=== PATIENT | male | born 1985 | race Two or more races ===

== ENCOUNTER 2019-08-16 23:32 | Emergency (ER) | payer SELFPAY ==
[~2019-08-16] VITALS: Ht 177.8 cm; Wt 113.1 kg
[2019-08-17 00:23] VITALS: BP 125/67
--- NOTE | 2019-08-17 00:29 | PHYS DOC ---
Past Medical History Past Medical History: Hypertension Past Surgical History: No Surgical History Alcohol Use: Rarely Drug Use: None Adult General Chief Complaint Chief Complaint: ANXIETY/PANIC ATTACK HPI HPI 34-year-old male presents to emergency Department complaints of palpitations, shortness of breath. Patient has a history of panic attack. Patient states he was driving on the road felt pounding in his chest as well as shortness of breath. This was approximately 30 minutes ago. Nothing makes his symptoms worse, nothing makes his symptoms better. Patient has a family history of diabetes, hypertension. Review of Systems Review of Systems Constitutional: Denies fever or chills [] Respiratory: Denies cough or shortness of breath [] Cardiovascular: No additional information not addressed in HPI [] GI: Denies abdominal pain, nausea, vomiting, bloody stools or diarrhea [] Musculoskeletal: Denies back pain or joint pain [] Neurologic: Denies headache, focal weakness or sensory changes [] All other systems were reviewed and found to be within normal limits, except as documented in this note. Allergies Allergies Allergies Coded Allergies Type Severity Reaction Last Updated Verified No Known Drug Allergies 08/17/19 No Physical Exam Physical Exam Constitutional: Well developed, well nourished, no acute distress, non-toxic appearance. [] HENT: Normocephalic, atraumatic, bilateral external ears normal, oropharynx moist, no oral exudates, nose normal. [] Eyes: PERRLA, EOMI, conjunctiva normal, no discharge. [] Cardiovascular:Heart rate regular rhythm, no murmur [] Lungs & Thorax: Bilateral breath sounds clear to auscultation [] Abdomen: Bowel sounds normal, soft, no tenderness, no masses, no pulsatile masses. [] Skin: Warm, dry, no erythema, no rash. [] Extremities: No tenderness, no edema. [] Neurologic: Alert and oriented X 3, no focal deficits noted. [] Psychologic: Affect normal, judgement normal, mood normal. [] Current Patient Data Vital Signs Vital Signs Date Time Temp Pulse Resp B/P (MAP) Pulse Ox O2 Delivery O2 Flow Rate FiO2 08/17/19 00:23 98.5 67 16 125/67 (86) 97 Room Air 98.5 Lab Values Laboratory Tests Test 08/17/19 00:40 White Blood Count 10.0 x10^3/uL (4.0-11.0) Red Blood Count 5.02 x10^6/uL (4.30-5.70) Hemoglobin 14.4 g/dL (13.0-17.5) Hematocrit 43.5 % (39.0-53.0) Mean Corpuscular Volume 87 fL (79-100) Mean Corpuscular Hemoglobin 29 pg (25-35) Mean Corpuscular Hemoglobin Concent 33 g/dL (31-37) Red Cell Distribution Width 13.4 % (11.5-14.5) Platelet Count 259 x10^3/uL (140-400) Neutrophils (%) (Auto) 49 % (31-73) Lymphocytes (%) (Auto) 40 % (24-48) Monocytes (%) (Auto) 10 % (0-9) H Eosinophils (%) (Auto) 1 % (0-3) Basophils (%) (Auto) 0 % (0-3) Neutrophils # (Auto) 4.9 x10^3/uL (1.8-7.7) Lymphocytes # (Auto) 4.0 x10^3/uL (1.0-4.8) Monocytes # (Auto) 1.0 x10^3/uL (0.0-1.1) Eosinophils # (Auto) 0.1 x10^3/uL (0.0-0.7) Basophils # (Auto) 0.0 x10^3/uL (0.0-0.2) Sodium Level 142 mmol/L (136-145) Potassium Level 4.0 mmol/L (3.5-5.1) Chloride Level 104 mmol/L (98-107) Carbon Dioxide Level 29 mmol/L (21-32) Anion Gap 9 (6-14) Blood Urea Nitrogen 11 mg/dL (8-26) Creatinine 0.9 mg/dL (0.7-1.3) Estimated GFR (Cockcroft-Gault) 97.2 BUN/Creatinine Ratio 12 (6-20) Glucose Level 100 mg/dL (70-99) H Calcium Level 9.0 mg/dL (8.5-10.1) Total Bilirubin 0.1 mg/dL (0.2-1.0) L Aspartate Amino Transferase (AST) 16 U/L (15-37) Alanine Aminotransferase (ALT) 15 U/L (16-63) L Alkaline Phosphatase 124 U/L (46-116) H Troponin I Quantitative < 0.017 ng/mL (0.000-0.055) Total Protein 7.5 g/dL (6.4-8.2) Albumin 3.7 g/dL (3.4-5.0) Albumin/Globulin Ratio 1.0 (1.0-1.7) Laboratory Tests 08/17/19 00:40 Laboratory Tests 08/17/19 00:40 EKG EKG EKG reviewed, normal sinus rhythm no evidence of acute ST elevation appreciated. Heart rate 64, normal axis. Troponin vision time 00 44[] Radiology/Procedures Radiology/Procedures [] Course & Med Decision Making Course & Med Decision Making Pertinent Labs and Imaging studies reviewed. (See chart for details) []34-year-old male presents to emergency Department complaints of palpitations, shortness of breath. Patient has a history of panic attack. Patient states he was driving on the road felt pounding in his chest as well as shortness of breath. This was approximately 30 minutes ago. Nothing makes his symptoms worse, nothing makes his symptoms better. Patient has a family history of diabetes, hypertension. Labs and EKG reviewed No acute process Likely palpitations with associated anxiety - discussed use of atenolol for palpitations Cardiac enzymes negative for acute process Dragon Disclaimer Dragon Disclaimer This electronic medical record was generated, in whole or in part, using a voice recognition dictation system. Departure Departure Impression: Primary Impression: Anxiety Additional Impression: Racing heart beat Disposition: HOME, SELF-CARE Condition: STABLE Referrals: NO PCP (PCP) Patient Instructions: Anxiety and Panic Attacks, [id number], Palpitations, [id number] Additional Instructions: Recommend follow up with PCP 3 - 5 days Return to the ER with worsening symptoms, intractable pain, fever, altered mental status Tylenol/Motrin as needed for pain Take new medications as prescribed Scripts Atenolol (ATENOLOL) 25 Mg Tablet 0.5 TAB PO DAILY, #30 TAB 5 Refills Prov: PARTHA BAILEY MD 08/17/19 Problem Qualifiers PARTHA BAILEY MD Aug 17, 2019 00:29
--- NOTE | 2019-08-17 00:43 | EKG ---
[facility] [address] [place] [address] Test Date: 2019-08-17 Test Time: 00:30:08 Pat Name: REENA BROWN Department: Room: Gender: M Lineman Apprentice: : 1985 Requested By: PARTHA BAILEY Order Number: [id number] Reading MD: Measurements Intervals [place] Rate: 64 P: 52 AL: 192 QRS: 86 QRSD: 90 T: 65 QT: 358 QTc: 369 Interpretive Statements SINUS RHYTHM QRS(T) CONTOUR ABNORMALITY CONSIDER ANTEROLATERAL MYOCARDIAL DAMAGE POSSIBLY ABNORMAL ECG RI6.01 No previous ECG available for comparison
[2019-08-17 00:52] LABS: BASO % 0 % (0-3); EOS # 0.1 x10^3/uL (0.0-0.7); EOS % 1 % (0-3); HEMATOCRIT 43.5 % (39.0-53.0); HEMOGLOBIN 14.4 g/dL (13.0-17.5); LYMPH % 40 % (24-48); MEAN CORPUSCULAR HEMOGLOBIN 29 pg (25-35); MEAN CORPUSCULAR HGB CONC 33 g/dL (31-37); MEAN CORPUSCULAR VOLUME 87 fL (79-100); MONO % 10 % (0-9); NEUT # 4.9 x10^3/uL (1.8-7.7); NEUT % 49 % (31-73); PLATELET COUNT 259 x10^3/uL (140-400); RED BLOOD COUNT 5.02 x10^6/uL (4.30-5.70); RED CELL DISTRIBUTION WIDTH 13.4 % (11.5-14.5)
[2019-08-17 01:00] LABS: CREATININE 0.9 mg/dL (0.7-1.3); GFR 97.2
[2019-08-17 01:06] LABS: ALBUMIN 3.7 g/dL (3.4-5.0); TOTAL BILIRUBIN 0.1 mg/dL (0.2-1.0); TOTAL PROTEIN 7.5 g/dL (6.4-8.2)
[2019-08-17] MEDS ORDERED: ATEN25TA PO (01:21)
== END 2019-08-17 01:40 | disposition home or self-care (01) ==
LOC: ER 23:32
DX: F41.9 Anxiety disorder, unspecified (principal); R00.0 Tachycardia, unspecified; R00.2 Palpitations; R06.02 Shortness of breath; I10 Essential (primary) hypertension
CPT/HCPCS: 36415; 80053; 84484; 85025; 93005; 99285

== ENCOUNTER 2020-04-04 14:55 | Emergency (ER) | payer SELFPAY ==
[~2020-04-04] VITALS: Ht 172.7 cm; Wt 116.0 kg
[~2020-04-04 14:55] MED LIST: ATEN25TA PO
[2020-04-04 15:19] LABS: BASO # 0.1 x10^3/uL (0.0-0.2); BASO % 1 % (0-3); EOS # 0.1 x10^3/uL (0.0-0.7); EOS % 1 % (0-3); HEMATOCRIT 43.4 % (39.0-53.0); HEMOGLOBIN 14.4 g/dL (13.0-17.5); LYMPH # 2.8 x10^3/uL (1.0-4.8); LYMPH % 36 % (24-48); MEAN CORPUSCULAR HEMOGLOBIN 29 pg (25-35); MEAN CORPUSCULAR HGB CONC 33 g/dL (31-37); MEAN CORPUSCULAR VOLUME 86 fL (79-100); MONO # 0.8 x10^3/uL (0.0-1.1); MONO % 10 % (0-9); NEUT # 4.2 x10^3/uL (1.8-7.7); NEUT % 53 % (31-73); PLATELET COUNT 276 x10^3/uL (140-400); RED BLOOD COUNT 5.05 x10^6/uL (4.30-5.70); RED CELL DISTRIBUTION WIDTH 13.4 % (11.5-14.5); WHITE BLOOD COUNT 7.9 x10^3/uL (4.0-11.0)
--- NOTE | 2020-04-04 15:30 | PHYS DOC ---
Past Medical History Past Medical History: Hypertension Past Surgical History: No Surgical History Smoking Status: Never Smoker Alcohol Use: Occasionally Drug Use: None General Adult EDM: Chief Complaint: HYPERTENSION HPI: HPI: Patient is a 35 year old male who presents with patient states that last year he was in the hospital because he started having dizziness, headache, numbness and tingling in his hands and feet and some sternal chest pain and was given atenolol and told that he has high blood pressure. He states that he has not been taking the atenolol and just takes it every now and then when he feels bad. He states today he began feeling very bad and was dizzy and having mid chest sternal pain. Patient states since he was feeling that way he took his atenolol 25 mg and now he feels much better. Upon arrival his vital signs are within normal limits. Patient currently states he has no symptoms and they have all resolved. Review of Systems: Review of Systems: Cardiovascular: chest pain or denies edema. [] Neurologic: Dizziness, headache, denies focal weakness. + sensory changes. [] Heart Score: HEART Score for Chest Pain: HEART Score for Chest Pain Response (Comments) Value History Slighlty/Non-Suspicious 0 ECG Normal 0 Age < 45 0 Risk Factors 1 or 2 Risk Factors 1 Troponin < Normal Limit 0 Total 1 Risk Factors: Risk Factors: DM, Current or recent (<one month) smoker, HTN, HLP, family history of CAD, obesity. Risk Scores: Score 0 - 3: 2.5% MACE over next 6 weeks - Discharge Home Score 4 - 6: 20.3% MACE over next 6 weeks - Admit for Clinical Observation Score 7 - 10: 72.7% MACE over next 6 weeks - Early Invasive Strategies Allergies: Allergies: Allergies Coded Allergies Type Severity Reaction Last Updated Verified No Known Drug Allergies 08/17/19 No Physical Exam: PE: Constitutional: Well developed, well nourished, no acute distress, non-toxic appearance. [] HENT: Normocephalic, atraumatic, bilateral external ears normal, oropharynx moist, no oral exudates, nose normal. [] Eyes: PERRLA, EOMI, conjunctiva normal, no discharge. [] Neck: Normal range of motion, no tenderness, supple, no stridor. [] Cardiovascular:Heart rate regular rhythm, no murmur [] Lungs & Thorax: Bilateral breath sounds clear to auscultation [] Abdomen: Bowel sounds normal, soft, no tenderness, no masses, no pulsatile mass es. [] Skin: Warm, dry, no erythema, no rash. [] Back: No tenderness, no CVA tenderness. [] Extremities: No tenderness, no cyanosis, no clubbing, ROM intact, no edema. [] Neurologic: Alert and oriented X 3, normal motor function, normal sensory function, no focal deficits noted. [] Psychologic: Affect normal, judgement normal, mood normal. Normal physical exam [] Current Patient Data: Labs: Laboratory Tests Test 04/04/20 15:10 White Blood Count 7.9 x10^3/uL (4.0-11.0) Red Blood Count 5.05 x10^6/uL (4.30-5.70) Hemoglobin 14.4 g/dL (13.0-17.5) Hematocrit 43.4 % (39.0-53.0) Mean Corpuscular Volume 86 fL (79-100) Mean Corpuscular Hemoglobin 29 pg (25-35) Mean Corpuscular Hemoglobin Concent 33 g/dL (31-37) Red Cell Distribution Width 13.4 % (11.5-14.5) Platelet Count 276 x10^3/uL (140-400) Neutrophils (%) (Auto) 53 % (31-73) Lymphocytes (%) (Auto) 36 % (24-48) Monocytes (%) (Auto) 10 % (0-9) H Eosinophils (%) (Auto) 1 % (0-3) Basophils (%) (Auto) 1 % (0-3) Neutrophils # (Auto) 4.2 x10^3/uL (1.8-7.7) Lymphocytes # (Auto) 2.8 x10^3/uL (1.0-4.8) Monocytes # (Auto) 0.8 x10^3/uL (0.0-1.1) Eosinophils # (Auto) 0.1 x10^3/uL (0.0-0.7) Basophils # (Auto) 0.1 x10^3/uL (0.0-0.2) Laboratory Tests 04/04/20 15:10 EKG: EK and read by Dr. Polanco is normal sinus rhythm. [] Radiology/Procedures: Radiology/Procedures: [] Impression: [facility] [id number] [place] [address] IMAGING REPORT Signed PATIENT: DANDY BROWN: [id number] : 1985 LOCATION: ER AGE: 35 SEX: M EXAM STATUS: PRE ER ORD. PHYSICIAN: PERTA LEWIS APRN REASON: hypertension PROCEDURE: PORTABLE CHEST 1V EXAM: PORTABLE CHEST 1V 04/04/2020 3:05 PM CLINICAL INDICATION:Hypertension COMPARISON:None TECHNIQUE:AP upright view of the chest FINDINGS:The heart and mediastinum are normal. Lungs are well-expanded and clear. No pleural effusion or pneumothorax. No pulmonary edema. No acute osseous abnormality. IMPRESSION:Normal chest radiograph. Electronically signed by: Laurie Mcqueen MD (04/04/2020 3:55 PM) [id number] DICTATED and SIGNED BY: LAURIE MCQUEEN MD DATE: 04/04/20 15[facility] [address] [place] [address] IMAGING REPORT Signed PATIENT: DANDY BROWN: [id number] : 1985 LOCATION: ER AGE: 35 SEX: M EXAM STATUS: PRE ER ORD. PHYSICIAN: PETRA LEWIS APRN REASON: DIZZINESS, NUMBNESS AND TINGLING PROCEDURE: CT HEAD WO CONTRAST PQRS Compliance Statement: One or more of the following individualized dose reduction techniques were utilized for this examination: 1. Automated exposure control 2. Adjustment of the mA and/or kV according to patient size 3. Use of iterative reconstruction technique CT head without contrast 04/04/2020 3:44 PM INDICATION: Dizziness, numbness and tingling COMPARISON: None available TECHNIQUE: Multiple axial CT images of the head were obtained from skull base through the vertex without intravenous contrast. FINDINGS: Head: Ventricles, sulci and basal cisterns are within normal limits. There is no hydrocephalus. Hernandez-white matter differentiation is normal. There is no acute intracranial hemorrhage. There is no mass, mass effect or midline shift. Posterior fossa is normal in appearance. Visualized portions of the orbits are normal. Paranasal sinuses are well aerated. Mastoid air cells are well aerated. Scalp and calvaria are normal. IMPRESSION: No acute intracranial hemorrhage. Electronically signed by: Mayela Ames MD (04/04/2020 4:03 PM) [facility] DICTATED and SIGNED BY: MAYELA AMES MD DATE: 04/04/20 160 Course & Med Decision Making: Course & Med Decision Making Pertinent Labs and Imaging studies reviewed. (See chart for details) Alert and oriented. Denies any pain at this time. Speaks in full clear sentences. 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 No extremity edema. Lungs are clear to auscultation all lobes. Skin pink warm and dry. Ambulatory with a steady gait. Moves all extremities without any complications or deficits. Patient denies abdominal pain, nausea, vomiting, chest pain, shortness of air, numbness or tingling, headache, dizziness, syncope, focal weaknesses, confusion, fever, cough, swelling, vision changes. Vital signs remained stable. He is hemodynamically stable. No signs or symptoms of organ damage. Patient continues to be asymptomatic. Heart score is 1. [] Dragon Disclaimer: Dragon Disclaimer: This electronic medical record was generated, in whole or in part, using a voice recognition dictation system. Departure Departure Impression: Primary Impression: Hypertension Qualified Codes: I10 - Essential (primary) hypertension Disposition: HOME, SELF-CARE Condition: STABLE Referrals: NO PCP (PCP) LANI JOLLEY MD Patient Instructions: Hypertension Additional Instructions: Follow-up with cardiology. Take your medication every day as prescribed. Justicifation of Admission Dx: Justifications for Admission: Justification of Admission Dx: N/A PETRA LEWIS JAILER CHIEF Apr 04, 2020 15:30
[2020-04-04 15:34] LABS: CALCIUM 8.3 mg/dL (8.5-10.1); GFR 85.5; POTASSIUM 3.7 mmol/L (3.5-5.1)
[2020-04-04 15:40] LABS: ALBUMIN 3.6 g/dL (3.4-5.0); ALBUMIN/GLOBULIN RATIO 0.9 (1.0-1.7); TOTAL BILIRUBIN 0.4 mg/dL (0.2-1.0); TOTAL PROTEIN 7.4 g/dL (6.4-8.2)
--- NOTE | 2020-04-04 15:57 | RAD ---
EXAM: PORTABLE CHEST 1V 04/04/2020 3:05 PM CLINICAL INDICATION:Hypertension COMPARISON:None TECHNIQUE:AP upright view of the chest FINDINGS:The heart and mediastinum are normal. Lungs are well-expanded and clear. No pleural effusion or pneumothorax. No pulmonary edema. No acute osseous abnormality. IMPRESSION:Normal chest radiograph. Electronically signed by: Laurie Mcqueen MD (04/04/2020 3:55 PM) [id number]
[2020-04-04] MEDS ORDERED: ASPIRIN 325 MG TABLET PO ONE (16:00)
--- NOTE | 2020-04-04 16:06 | RAD ---
RS Compliance Statement: One or more of the following individualized dose reduction techniques were utilized for this examination: 1. Automated exposure control 2. Adjustment of the mA and/or kV according to patient size 3. Use of iterative reconstruction technique CT head without contrast 04/04/2020 3:44 PM INDICATION: Dizziness, numbness and tingling COMPARISON: None available TECHNIQUE: Multiple axial CT images of the head were obtained from skull base through the vertex without intravenous contrast. FINDINGS: Head: Ventricles, sulci and basal cisterns are within normal limits. There is no hydrocephalus. Hernandez-white matter differentiation is normal. There is no acute intracranial hemorrhage. There is no mass, mass effect or midline shift. Posterior fossa is normal in appearance. Visualized portions of the orbits are normal. Paranasal sinuses are well aerated. Mastoid air cells are well aerated. Scalp and calvaria are normal. IMPRESSION: No acute intracranial hemorrhage. Electronically signed by: Fifi Wolf MD (04/04/2020 4:03 PM) [facility]
[2020-04-04 16:39] LABS: BILIRUBIN,URINE NEGATIVE (NEG); CLARITY,URINE CLEAR; COLOR,URINE YELLOW; NITRITE,URINE NEGATIVE (NEG); PH,URINE 7.5 (<5.0-8.0); PROTEIN,URINE NEGATIVE (NEG-TRACE); UROBILINOGEN,URINE 0.2 mg/dL (0.2 mg/dL)
[2020-04-04 16:47] LABS: BARBITURATES NEG (NEG); BENZODIAZEPINES NEG (NEG); CANNABINOIDS NEG (NEG); COCAINE NEG (NEG); METHADONE NEG (NEG); OPIATES NEG (NEG); PHENCYCLIDINE NEG (NEG)
[2020-04-04 16:50] LABS: AMPHETAMINE/METHAMPHETAMINE NEG (NEG)
[2020-04-04 16:59] LABS: BACTERIA,URINE 0 /HPF (0-FEW); RBC,URINE 0 /HPF (0-2); WBC,URINE 0 /HPF (0-4)
[2020-04-04 17:23] VITALS: BP 112/65
== END 2020-04-04 17:37 | disposition home or self-care (01) ==
LOC: ER 14:55
DX: I10 Essential (primary) hypertension (principal); R42 Dizziness and giddiness; R51 Headache; R07.89 Other chest pain; R20.0 Anesthesia of skin
CPT/HCPCS: 36415; 70450; 71045; 80053; 80307; 81001; 83880; 84484; 85025; 85610; 99285

== ENCOUNTER 2020-04-09 16:02 | Emergency (ER) | payer SELFPAY ==
[~2020-04-09] VITALS: Ht 172.7 cm; Wt 116.0 kg
[2020-04-09 16:15] VITALS: BP 134/84
== END 2020-04-09 16:23 | disposition left against medical advice (07) ==
LOC: ER 16:02
DX: R51 Headache (principal); Z53.21 Procedure and treatment not carried out due to patient leaving prior to being seen by health care provider